=== PATIENT | female | born 1965 | race Caucasian/White ===

== ENCOUNTER 2018-04-09 10:40 | Emergency (ER) | payer OTHER ==
[~2018-04-09] VITALS: Ht 152.4 cm; Wt 63.6 kg
[2018-04-09] MEDS ORDERED: OXYC10 PO (10:58)
[2018-04-09] MEDS ORDERED: EPINEPHRINE IM (10:58)
[2018-04-09] MEDS ORDERED: ALPR1TAB7 PO (10:58)
[2018-04-09] MEDS ORDERED: ALBU8HFA IH (10:58)
[2018-04-09] MEDS ORDERED: ALBUTEROL SULFATE 2.5 MG/0.5 ML NEB SOLUTION NEB ONE ×2 (12:45→13:30)
[2018-04-09] MEDS ORDERED: HYDROCODONE/ACETAMINOPHEN 5-325 MG TABLET PO ONE (12:45)
[2018-04-09 13:18] VITALS: BP 118/87
== END 2018-04-09 13:47 | disposition home or self-care (01) ==
LOC: EMS 10:43
DX: L03.115 Cellulitis of right lower limb (principal); J45.901 Unspecified asthma with (acute) exacerbation; F41.9 Anxiety disorder, unspecified; M54.5 Low back pain; G89.29 Other chronic pain; J44.9 Chronic obstructive pulmonary disease, unspecified; F17.210 Nicotine dependence, cigarettes, uncomplicated; Z76.0 Encounter for issue of repeat prescription; Z88.5 Allergy status to narcotic agent; Z88.8 Allergy status to other drugs, medicaments and biological substances
CPT/HCPCS: 94640; 99284; J7613